=== PATIENT | female | born 1990 | race Caucasian/White ===

== ENCOUNTER 2016-09-12 17:46 | Emergency (ER) | payer BC ==
[2016-09-12 19:52] VITALS: BP 143/92
--- NOTE | 2016-09-12 20:02 | UC ---
Respiratory Complaint HPI - HPI Summary HPI Summary: cough, congestion, green sputum for 4 weeks did have fevers - History of Current Complaint Chief Complaint: UCRespiratory Stated Complaint: COUGH Time Seen by Provider: 09/12/16 19:54 Hx Obtained From: Patient Hx Last Menstrual Period: 05/21/12 ?: No Onset/Duration: Lasting Weeks - 4, Still Present Timing: Constant Severity Initially: Mild Severity Currently: Mild Pain Intensity: 2 Pain Scale Used: 0-10 Numeric Character: Cough: Productive Aggravating Factors: Nothing Alleviating Factors: Nothing Associated Signs And Symptoms: Positive: Fever, Chills, URI, Nasal Congestion, Sinus Discomfort - Allergies/Home Medications Allergies/Adverse Reactions: Allergies Allergy/AdvReac Type Severity Reaction Status Date / Time No Known Allergies Allergy Verified 09/12/16 19:52 PMH/Surg Hx/FS Hx/Imm Hx Previously Healthy: Yes - Surgical History Surgical History: Yes Surgery Procedure, Year, and Place: T & A, LUCERO BUNIONECTOMY, wisdom tooth extraction, cyst removed from left ovary - Family History Known Family History: Positive: None Family History: no cardiovascular issues reported in family lineage - Social History Occupation: Employed Full-time Lives: With Family Alcohol Use: Weekly Alcohol Amount: 1-2 per week Substance Use Type: None Substance Use Comment - Amount & Last Used: xanax Smoking Status (MU): Never Smoked Tobacco Review of Systems Constitutional: Fever - subjective Skin: Negative Eyes: Negative ENT: Negative Respiratory: Cough - green sputum Cardiovascular: Negative Gastrointestinal: Negative Genitourinary: Negative Motor: Negative Neurovascular: Negative Musculoskeletal: Negative Neurological: Negative Psychological: Negative All Other Systems Reviewed And Are Negative: Yes Physical Exam Triage Information Reviewed: Yes Appearance: Well-Appearing, No Pain Distress, Well-Nourished Vital Signs: Initial Vital Signs Temp 98.6 F 09/12/16 19:47 Pulse 118 09/12/16 19:47 Resp 14 09/12/16 19:47 BP 143/92 09/12/16 19:47 Pulse Ox 100 09/12/16 19:47 Vital Signs Reviewed: Yes Eye Exam: Normal Eyes: Positive: Conjunctiva Clear ENT Exam: Normal ENT: Positive: Normal ENT inspection, Hearing grossly normal, Pharynx normal, TMs normal. Negative: Tonsillar swelling, Tonsillar exudate, Trismus, Muffled/ hoarse voice Dental Exam: Normal Neck exam: Normal Neck: Positive: Supple, Nontender, No Lymphadenopathy Respiratory Exam: Normal Respiratory: Positive: Chest non-tender, Lungs clear, Normal breath sounds, No respiratory distress, No accessory muscle use Cardiovascular Exam: Normal Cardiovascular: Positive: RRR, No Murmur, Pulses Normal, Brisk Capillary Refill Musculoskeletal Exam: Normal Musculoskeletal: Positive: Strength Intact, ROM Intact, No Edema Neurological Exam: Normal Neurological: Positive: Alert, Muscle Tone Normal Psychological Exam: Normal Skin Exam: Normal UC Diagnostic Evaluation - Laboratory O2 Sat by Pulse Oximetry: 100 Respiratory Course/Dx - Course Course Of Treatment: zithromax, robitussin and codiene, albuterol, increase fluids, follow with pcp - Differential Dx/Diagnosis Differential Diagnosis/HQI/PQRI: Asthma, Bronchitis, Lower Resp Infection, Sinusitis, Tuberculosis, Other - whooping cough Provider Diagnoses: Bronchitis, with bronchospasm Discharge - Discharge Plan Condition: Stable Disposition: HOME Prescriptions: Albuterol HFA INHALER* [Ventolin HFA Inhaler*] 2 puff INH Q6H PRN #1 mdi PRN Reason: cough Azithromycin TAB* [Zithromax TAB (Z-MARK) 250 mg #6 tabs] 2 tab PO .TODAY, THEN 1 DAILY #1 mark guaiFENesin/CODIEN 100MG-10MG* [Robitussin AC 100Mg-10Mg*] 10 ml PO Q4H PRN # 120 udc MDD 60ml PRN Reason: Cough Patient Education Materials: Acute Cough (ED) Referrals: [facility] [Outside] - If Needed
== END 2016-09-12 20:21 | disposition home or self-care (01) ==
LOC: UCCORT 17:46
DX: J20.9 Acute bronchitis, unspecified (principal)
CPT/HCPCS: 99212; G0463

== ENCOUNTER 2017-04-26 12:50 | Emergency (ER) | payer BC ==
[2017-04-26 15:44] VITALS: BP 135/91
--- NOTE | 2017-04-26 15:54 | UC ---
Throat Pain/Nasal Buzz HPI - HPI Summary HPI Summary: sore throat, fever/chills, earache bilaterally since thursday and muscle aches and pains started last night - took sinus/cold and flu otc with some relief - History of Current Complaint Chief Complaint: UCGeneralIllness Stated Complaint: CHILLS/LUCIANO/FEVER Time Seen by Provider: 04/26/17 15:46 Hx Obtained From: Patient Hx Last Menstrual Period: 04/12/17 Onset/Duration: Lasting Days Severity: Moderate Pain Intensity: 4 Associated Signs & Symptoms: Positive: Negative - Epiglottits Risk Factors Epiglottis Risk Factors: Negative - Allergies/Home Medications Allergies/Adverse Reactions: Allergies Allergy/AdvReac Type Severity Reaction Status Date / Time No Known Allergies Allergy Verified 04/26/17 15:44 PMH/Surg Hx/FS Hx/Imm Hx Previously Healthy: Yes - Surgical History Surgical History: Yes Surgery Procedure, Year, and Place: T & A, LUCERO BUNIONECTOMY, wisdom tooth extraction, cyst removed from left ovary - Family History Known Family History: Positive: None Family History: no cardiovascular issues reported in family lineage - Social History Alcohol Use: Weekly Alcohol Amount: 1-2 per week Substance Use Type: None Substance Use Comment - Amount & Last Used: xanax Smoking Status (MU): Never Smoked Tobacco Review of Systems Constitutional: Fever, Chills Skin: Negative Eyes: Negative ENT: Sore Throat, Ear Ache Respiratory: Cough - nonprod Cardiovascular: Negative Gastrointestinal: Negative Genitourinary: Negative Motor: Negative Neurovascular: Negative Musculoskeletal: Negative Neurological: Negative Psychological: Negative Is Patient Immunocompromised?: No All Other Systems Reviewed And Are Negative: Yes Physical Exam Triage Information Reviewed: Yes Appearance: Ill-Appearing Vital Signs: Initial Vital Signs Temp 98.1 F 04/26/17 15:39 Pulse 94 04/26/17 15:39 Resp 16 04/26/17 15:39 BP 135/91 04/26/17 15:39 Pulse Ox 98 04/26/17 15:39 Vital Signs Reviewed: Yes Eye Exam: Normal ENT: Positive: Pharyngeal erythema, TM bulging - lucero Respiratory Exam: Normal Cardiovascular Exam: Normal Neurological Exam: Normal Psychological Exam: Normal Skin Exam: Normal Throat Pain/Nasal Course/Dx - Course Course Of Treatment: influenza swab ordered - results negative. continue to drink plenty of water daily. take abx as directed -discussed use and common side effects. tylenol or ibuprofen prn every 4-6 hours for fever/pain. f/u pcp if symptoms not resolving - Differential Dx/Diagnosis Provider Diagnoses: sinusitis Discharge - Discharge Plan Condition: Good Disposition: HOME Prescriptions: Azithromyxin UZIEL (NF) [Z-Uziel (Zithromax) 250 mg tabs #6] 2 tab PO .TODAY, THEN 1 DAILY 5 Days #6 tab Patient Education Materials: Sinusitis (ED) Referrals: Non Staff,Doctor [Primary Care Provider] - 1 Week (PCP referral)
== END 2017-04-26 16:17 | disposition home or self-care (01) ==
LOC: UCCORT 12:50
DX: J32.9 Chronic sinusitis, unspecified (principal)
CPT/HCPCS: 87502; 99212; G0463

== ENCOUNTER 2019-03-20 12:12 | Emergency (ER) | payer BC ==
[2019-03-20 13:23] VITALS: BP 142/90
--- NOTE | 2019-03-20 13:30 | UC ---
FLU HPI - HPI Summary HPI Summary: Flu- like symptoms starting last evening with cough, fever, chills, body aches, headache. Pt works as a home health aide. - History of Current Complaint Chief Complaint: UCRespiratory Stated Complaint: FEVER, ACHY, COUGH Time Seen by Provider: 03/20/19 13:29 Hx Obtained From: Patient Hx Last Menstrual Period: 02/17/20 ?: No Onset/Duration: Sudden Onset Severity Currently: Moderate Severity Initially: Moderate Pain Intensity: 6 Associated Signs & Symptoms: Positive: Fever, Myalgia, Cough, Nasal Congestion, Headache Related Hx: Possible Flu/Infectious Exposure - Allergy/Home Medications Allergies/Adverse Reactions: Allergies Allergy/AdvReac Type Severity Reaction Status Date / Time No Known Allergies Allergy Verified 03/20/19 13:18 Home Medications: Home Medications Sertraline* [Zoloft*] 50 mg PO BEDTIME 03/20/19 [History Confirmed 03/20/19] PMH/Surg Hx/FS Hx/Imm Hx Previously Healthy: Yes - Surgical History Surgical History: Yes Surgery Procedure, Year, and Place: T & A, LUCERO BUNIONECTOMY, wisdom tooth extraction, cyst removed from left ovary - Family History Known Family History: Positive: None Family History: no cardiovascular issues reported in family lineage - Social History Occupation: Employed Full-time Lives: With Family Alcohol Use: Weekly Alcohol Amount: 1-2 per week Substance Use Type: None Substance Use Comment - Amount & Last Used: xanax Smoking Status (MU): Never Smoked Tobacco Review of Systems All Other Systems Reviewed And Are Negative: Yes Constitutional: Positive: Fever, Chills ENT: Positive: Nasal Discharge Respiratory: Positive: Cough - dry cough Musculoskeletal: Positive: Myalgia Neurological: Positive: Headache Is Patient Immunocompromised?: No Physical Exam Triage Information Reviewed: Yes Appearance: Well-Appearing, No Pain Distress, Well-Nourished Vital Signs: Initial Vital Signs Temp 98.6 F 03/20/19 13:19 Pulse 119 03/20/19 13:19 Resp 16 03/20/19 13:19 BP 142/90 03/20/19 13:19 Pulse Ox 100 03/20/19 13:19 Vital Signs Reviewed: Yes Eyes: Positive: Conjunctiva Clear ENT: Positive: Hearing grossly normal, Pharynx normal, TMs normal, Uvula midline Neck: Positive: Supple, Nontender, No Lymphadenopathy Respiratory: Positive: Lungs clear, Normal breath sounds, No respiratory distress, No accessory muscle use Cardiovascular: Positive: No Murmur, Pulses Normal, Brisk Capillary Refill, Tachycardia Musculoskeletal Exam: Normal Neurological Exam: Normal Psychological Exam: Normal Skin Exam: Normal Flu Course/Dx - Course Course Of Treatment: Rapid flu test positive for A and B We discussed comfort measures since pt has no chronic ailments but patient opted to be treated with Tamiflu. - Differential Dx/Diagnosis Provider Diagnosis: Influenza Discharge ED - Sign-Out/Discharge Documenting (check all that apply): Patient Departure All imaging exams completed and their final reports reviewed: No Studies - Discharge Plan Condition: Fair Disposition: HOME Prescriptions: Oseltamivir CAP* [Tamiflu CAP*] 75 mg PO BID 5 Days #10 cap Patient Education Materials: Influenza (DC) Forms: *Work Release Referrals: Braxton Pablo MD [Primary Care Provider] - Additional Instructions: Increase fluids, May alternate Tylenol every 4 hours with Motrin every 8 hours for fever/body aches. Follow up with your primary care doctor in 4-5 days if no improvement - Billing Disposition and Condition Condition: FAIR Disposition: Home - Attestation Statements Provider Attestation: I was available for consult. This patient was seen by the FÁTIMA. The patient was not presented to , seen by or examined by nd -Radha Rush MD
== END 2019-03-20 13:50 | disposition home or self-care (01) ==
LOC: UCCORT 12:12
DX: J11.1 Influenza due to unidentified influenza virus with other respiratory manifestations (principal)
CPT/HCPCS: 99212; G0463